=== PATIENT | male | born 1960 | race Caucasian/White ===

== ENCOUNTER 2016-09-28 11:43 | Emergency (ER) | payer OTHER ==
[~2016-09-28 11:43] MED LIST: AFRIN NASAL SPR15 ML; LISINOPRIL10 MG; NAPROSYN-EC500 MG PO; NORCO1 TAB 10/3 PO; NORVASC; OMNICEF300 MG PO; ZYRTEC
== END 2016-09-28 12:25 | disposition home or self-care (01) ==
LOC: SED 11:43
DX: J32.9 Chronic sinusitis, unspecified (principal); I10 Essential (primary) hypertension; Z88.1 Allergy status to other antibiotic agents; Z88.5 Allergy status to narcotic agent; Z98.52 Vasectomy status; Z94.5 Skin transplant status
CPT/HCPCS: 94640; 99283

== ENCOUNTER 2016-10-29 19:02 | Emergency (ER) | payer OTHER ==
--- NOTE | ~2016-10-29 | CR21 ---
[facility] A Service of [facility] RADIOLOGY TEXT RESULTS PATIENT: ANALY CASTANON LOCATION: SED : 60 UNIT #: [id number] AGE: [address]: FAHAD HULL SEX: M ORDER DR: [id number] [place] [id number] MR#: [id number] Acc #: [id number] NAME: ANALY CASTANON : 1960 SEX: M STUDY DATE/TIME: 10/29/2016 19:26 UNIT: SED ROOM: STUDY DESCRIPTION: CR Ankle Min 3 Views Rt Attending Physician: Fahad Hull A.P.R.N. Ordering Physician: Fahad Hull A.P.R.N. Primary Care Physician: No Primary Care Physician MEDICAL IMAGING REPORT This report is preliminary unless electronic signature is present. EXAM Right ankle series. INDICATION Right ankle pain and swelling with puncture wound to the medial right ankle, after an injury today. PROCEDURE Three views of the right ankle. COMPARISON None. FINDINGS Soft tissue swelling along the medial aspect of the ankle. No fracture or dislocation. No radiodense foreign body. IMPRESSION Soft tissue swelling along the medial right ankle. No fracture or radiodense foreign body. Dictated by... Gallo Vieira M.D. THIS IS AN ELECTRONICALLY VERIFIED REPORT Gallo Vieira M.D. at 10/30/2016 2:26 PM EED/cj TD: 10/29/2016 22:50 JOB #: [id number] [facility] A Service of [facility] RADIOLOGY TEXT RESULTS PATIENT: ANALY CASTANON LOCATION: SED : 60 UNIT #: [id number] AGE: [address]: FAHAD HULL SEX: M ORDER DR: MEDICAL IMAGING REPORT Page 1 of 1
== END 2016-10-29 20:40 | disposition home or self-care (01) ==
LOC: SED 19:02
DX: S90.01XA Contusion of right ankle, initial encounter (principal); I10 Essential (primary) hypertension; X58.XXXA Exposure to other specified factors, initial encounter; Y92.9 Unspecified place or not applicable
CPT/HCPCS: 29540; 73610; 96372; 99283; J1885